=== PATIENT | male | born 1960 | race African-American/Black ===

== ENCOUNTER 2020-11-11 18:08 | Emergency (ER) | payer OTHER ==
[~2020-11-11] VITALS: Ht 177.8 cm; Wt 83.9 kg
--- NOTE | ~2020-11-11 | EMS ---
[address] [address] EMS Patient Care Report Name: DESIRE REYES Room #: DEP HAI Cook#: [id number] Admission: 11/11/20 Attend Phys: Discharge: 11/12/20 Date of : 62 Report #: [id number] THIS REPORT FOR: //name// Report Transmitted: 11/16/2020 09:54 EMS Care Summary [place], [place]/[facility] Incident [id number] @ 11/11/2020 17:17 Incident Location [address] [place] [id number] Patient DESIRE REYES Male, 60 Years 1960 Patient Address unknown Patient History None Reported, Patient Allergies No known allergies, Patient Medications None Reported, Chief Complaint hand pain Disposition Transported No Lights/[place] [facility] Reason Sick Person Transported To [facility] Narrative Upon arrival PT was [place] in [place] supine [place]. PT stated he had a CC of hand pain with onset of the prior days when his dog had pulled on the leash to hard. PT was assisted to stretcher and taken to back of ambulance for further medical evaluation and intervention. PT was then monitored for any change in condition while en route to hospital. [address] [address] EMS Patient Care Report Name: DESIRE REYES Room #: DEP ER Joey#: [id number] Admission: 11/11/20 Attend Phys: Discharge: 11/12/20 Date of : 62 Report #: [id number] Initial Vitals @17:45R: 18,BP: 180/78,Pain: 4/10,GCS: 15,Glucose: 93,SpO2: 97,Revised Trauma: 12, @17:47P: 112,R: 18,BP: 174/88,Pain: 4/10,GCS: 15,SpO2: 97,Revised Trauma: 12, Assessments @17:31MENTAL:Place Oriented,Time Oriented,Person Oriented,Other,Event Oriented,SKIN:No Abnormalities,HEENT:Head/Face: No Abnormalities,Eyes: No Abnormalities,Neck/Airway: No Abnormalities,LUNG SOUNDS:General: No Abnormalities,Left Upper: No Abnormalities,Right Upper: No Abnormalities,Left Lower: No Abnormalities,Right Lower: No Abnormalities,ABDOMEN:General: No Abnormalities,Left Upper: No Abnormalities,Right Upper: No Abnormalities,Left Lower: No Abnormalities,Right Lower: No Abnormalities,PELVIS//GI:No Abnormalities,EXTREMITIES:Capillary Refill: Right Upper: < 2 Sec,Capillary Refill: Left Upper: < 2 Sec,PULSE:Radial: 2+ Normal,NEURO:No Abnormalities, Impression Extremity Pain Procedures @17:31ALS AssessmentResponse: UnchangedSucceeded Timeline 17:15,Call Received 17:15,Dispatch Notified 17:17,Dispatched 17:18,En Route 17:30,On Scene 17:31,At Patient 17:31,ALS Assessment,Response: UnchangedSucceeded, 17:45,BP: 180/78 M,PULSE: ,RR: 18 R,SPO2: 97 Ox,ETCO2: ,B,PAIN: 4,GCS: 15, 17:47,BP: 174/88 M,PULSE: 112,RR: 18 R,SPO2: 97 Ox,ETCO2: ,BG: ,PAIN: 4,GCS: 15, 17:52,Depart Scene 18:03,At Destination 18:21,Call Closed Disclaimer [email or web address] Copyright 2020 [employer] This EMS Care Summary contains data elements from the applicable legal record (which may be displayed differently). It is designed to provide pertinent information for the following purposes: continuity of care, clinical quality, and state data reporting. The complete legal record is available to ED staff and administrators of the receiving hospital in [employer] Patient Tracker. All data is provided "as is."
[2020-11-11 18:09] VITALS: BP 132/92
== END 2020-11-12 07:55 | disposition home or self-care (01) ==
LOC: ER 18:08
DX: F10.129 Alcohol abuse with intoxication, unspecified (principal); Y90.9 Presence of alcohol in blood, level not specified; M79.642 Pain in left hand